=== PATIENT | male | born 1970 | race Caucasian/White ===

== ENCOUNTER 2023-10-28 19:31 | Emergency (ER) | payer OTHER, SELFPAY ==
[2023-10-28 19:35] VITALS: BP 152/80; BMI 32.1
--- NOTE | 2023-10-28 20:13 | ED.GENMED ---
History of Present Illness
General
Chief Complaint: Headache
Source: patient
Exam Limitations: none
Time Seen by Provider: 10/28/23 19:50
Travel History
Have you had any contact with someone who has COVID-19?: No
Do you have any symptoms of coronavirus? Fever > 100 degrees, chills, cough, shortness of breath, sore throat, loss of taste or smell, muscle aches, or headache?: No
History of Present Illness
History of Present Illness:
This is a 53 year old male that comes in with c/o left sided headache. States that he has a history of anxiety but is not on any medication for this. States that he has never damage in the left neck area and he has this chronic pain in the upper
back that he has had worked up. States that this causes him to have trouble breathing. States that the last couple of days his right shoulder has been hurting and his arm was twitching. Sates that he also has a headache on the left side with this
tingling that is not going away Sates that he tried Aspirin and Ibuprofen. Denies any fever, chills, chest pain, abd pain, nausea, vomiting, diarrhea, dizziness, urinary burning.
Past History
Past History
ED Past Medical History: HTN, Hypercholesterolemia and NIDDM
ED Past Surgical History: Orthopedic (Left arm repair) and Other (Left ear surgery, )
Social History
Tobacco: Former smoker
Alcohol: Occasional
Drug: Other (Former marijuana smoker)
Personal: Single
Living: alone
Family History
Family History: CAD
Review of Systems
Review of Systems
All Other Systems: ROS reviewed and negative except as documented in HPI and ROS
Constitutional: Reports no symptoms; Denies fever or chills
EENT: Reports no symptoms
Respiratory: Reports trouble breathing; Denies cough
Cardiac: Reports no symptoms; Denies chest pain
ABD/GI: Reports no symptoms; Denies abdominal pain, nausea, vomiting or diarrhea
: Reports no symptoms; Denies dysuria, frequency or urgency
Musculoskeletal: Reports other (Right arm twitching)
Skin: Reports no symptoms
Neurological: Reports headache; Denies dizzy
Psychiatric: Reports no symptoms
Phy Exam
General Physical Exam
General Presentation: well appearing and no apparent distress
General age: appears stated age
General Skin: warm and dry
General Habitus: normal
General Hydration: appears well hydrated
ENT Exam
ENT Exam: TM's normal, pharynx normal and neck supple
Eye Exam
Eye Exam: EOMI
Cardiovascular Exam
Cardiovascular Exam: regular rate/rhythm, no edema, no murmur and normal peripheral pulses
Pulmonary Exam
Pulmonary Exam: lungs clear, no respiratory distress, no rales, chest non tender, no crackles, no rhonchi, no wheezing and no cough
Gastrointestinal Exam
Gastrointestinal Exam: normal bowel sounds, non tender, soft, no organomegaly, no pulsatile mass and non distended
Musculoskeletal Exam
Musculoskeletal Exam: full ROM, no edema and other (NO twitching noted of the right arm)
Skin Exam
Skin Exam: normal color, warm/dry, no rash and no petechia
Psychiatric Exam
Psychiatric Exam: normal mood/affect
Course
Orders/Labs/Results
Orders:
Orders
10/28/23 20:11
CT Head W/o Iv Contrast Urgent
Comment:
Reason For Exam: Left sided headache pain
0.9% Sodium Chloride 1000 ml [Nss] 1,000 ml IV BOLUS
Acetaminophen [Tylenol] 1,000 mg PO NOW STA
Dexamethasone Sod Phosphate [Decadron] 10 mg IV NOW STA
Ketorolac [Toradol] 30 mg IV NOW STA
10/28/23 20:26
Complete Blood Count/With Diff Urgent
Comprehensive Metabolic Panel Urgent
Abnormal Lab Results
10/28/23
20:26
MPV 10.8 H fL
(7.4-10.4)
BUN 22 H mg/dl
(9-20)
Glucose 133 H mg/dl
(70-99)
10/28/23 20:26
10/28/23 20:26
Slight Dehydration. Glucose nonfasting.
Vital Signs
Initial and Last Documented VS:
Initial Vital Signs
Temp Pulse Resp BP Pulse Ox
98.5 F 71 16 152/80 98
10/28/23 19:35 10/28/23 19:35 10/28/23 19:35 10/28/23 19:35 10/28/23 19:35
Last Documented Vital Signs
Temp Pulse Resp BP Pulse Ox
98.2 F 59 20 152/84 96
10/28/23 21:32 10/28/23 21:32 10/28/23 21:32 10/28/23 21:32 10/28/23 21:32
MDM/Problems Addressed
Differential Diagnosis Includes:
Pinched nerve, Anxiety
MDM/Problems Addressed:
This is a 53 year old male that comes in with c/o some right shoulder pain and twitching in the right upper arm. States that he felt it was not going away. States that he does have a history of Nerve damage which causes him to have this upper back
discomfort. States that he also has left sided headache.
Will get CT head, Labs and medicate for headache pain and IV fluids
Back into see patient. Patient states that he is feeling better. Explained that his CT of the head is normal and his blood work shows very slight Dehydration. Encouraged patient to use Tylenol and Ibuprofen for his headache pain. Explained to
patient that there has not been any arm twitching noted here and he says that is stopped. Patient states that he will follow up with the family doctor for his anxiety. Patient to return with any concerns.
Chronic conditions affecting care: Psychiatric illness and Other (History of Nerve damage in the neck)
Acute Exacerbation and/or Progression of Chronic Illness: Other (Nerve damage in the neck)
*Radiology
Radiology exam reviewed: radiology read reviewed (CT head- No acute intracranial abnormality)
*Pulse Oximetry
Patient hypoxic: no
*EKG
Interpreted by ED Provider?: NA
Rate: EKG- N/A
*Towboat Engineer Interpretation
Rate: Towboat Engineer- N/A
*Critical Care Note
Total Time (30-74mins, 75-104mins- exclusive of procedures): Not Applicable
ED Attending Note
-
Portions of this chart may have been created with voice recognition software.� Occasional wrong word or��sound alike� substitutions may have occurred due to the inherent limitations of voice recognition software.
Discharge Plan
Departure
Patient Disposition: Home (Routine Discharge)
Date of Disposition: 10/28/23
Time of Disposition: 22:28
Patient with high blood pressure during this ER visit?: Yes
Condition: Good
Covid-19: Not Applicable
Discharge Problem:
Headache
Instructions: Headache, Adult (DC), BLOOD PRESSURE
Prescriptions:
No Action
losartan 50 MG tablet
50 mg PO DAILY
aspirin 81 MG tablet,delayed release (DR/EC)
81 mg PO DAILY
Atorvastatin
1 tab PO DAILY
acetaminophen [Tylenol Extra Strength] 500 MG tablet
1,000 mg PO Q6HPRN PRN (Reason: back pain)
albuterol sulfate 18 GM HFA aerosol inhaler
18 gm IH Q4HPRN PRN (Reason: SOB)
metformin 500 MG tablet extended release 24 hr
500 mg PO DAILY
dulaglutide [Trulicity] 1.5 MG/0.5 ML pen injector
1.5 mg SQ .ON FRIDAYS
cyclobenzaprine 10 MG tablet
10 mg PO TIDPRN PRN (Reason: pain, spasm) Qty: 13 0RF
prednisone 10 MG tablet
10 mg PO .TAPER Qty: 30 0RF
Rx Instructions:
Take 40mg daily x3days, 30mg daily x3days,
20mg daily x3days, 10mg daily x3days.
amoxicillin-pot clavulanate [Augmentin] 500-125 mg tablet
1 tab PO Q8H 7 Days Qty: 21 0RF
oxycodone-acetaminophen [Percocet] 5-325 mg tablet
1 tab PO Q6H PRN (Reason: pain) Qty: 4 0RF
prednisone 20 mg tablet
40 mg PO DAILY 5 Days Qty: 10 0RF
Referrals:
Joey Hannah MD [Family Provider] - Call in 1-3 days for appt
Activity Restrictions/Additional Instructions:
As discussed, your blood work shows very slight Dehydration. Please increase your water intake to 8-8oz glasses daily. Your CT of the head is normal. You may use Tylenol 1000mg every 6 hours for pain and IBuprofen 600mg every 6 hours with food for
headache pain. Follow up with the family doctor for recheck. IF YOU HAVE ANY OTHER CONCENS PLEASE RETURN TO THE EMERGENCY ROOM
Interventions
Interventions:
*Risk Screen - Suicide Last Done: 10/28/23 19:35
*General Assessment Last Done: 10/28/23 20:13
*Neglect/Abuse Screening Last Done: 10/28/23 19:35
ED- Fall Risk Assessment Last Done: 10/28/23 20:13
*ED COVID-19 Vaccine History Last Done: 10/28/23 19:35
ED- Neurological Assessment Last Done: 10/28/23 20:13
[2023-10-28] MEDS: NSS 1000 IV (20:26)
[2023-10-28 20:30] LABS: % Basophils 0.7 % (0-2); % Eosinophils 3.3 % (0-6); % Immature Granulocytes 0.3 % (0-0.5); % Lymphocytes 21.4 % (20.5-51.1); % Monocytes 7.4 % (1.7-9.3); % Neutrophils 66.9 % (42.2-75.2); Absolute Basophils 0.1 10^3/uL (0-0.2); Absolute Eosinophils 0.2 10^3/uL (0-0.7); Absolute Lymphocytes 1.5 10^3/uL (1.2-3.4); Absolute Monocytes 0.5 10^3/uL (0.1-0.6); Absolute Neutrophils 4.8 10^3/uL (1.4-6.5); Hematocrit 42.3 % (39.0-52.0); Mean Corp Hgb Conc. 35.5 g/dL (33.0-37.0); Mean Corpuscular Hgb 30.4 pg (27.0-31.0); Mean Corpuscular Volume 85.8 fL (80.0-94.0); Mean Platelet Volume 10.8 fL (7.4-10.4); Nucleated Red Blood Cells % 0 % (-); Platelet Count 206 10^3/uL (130-400); Red Blood Cell Count 4.93 10^6/uL (4.70-6.10); Red Cell Dist. Width 13.8 % (11.5-14.5); White Blood Cell Count 7.2 10^3/uL (4.8-10.8)
[2023-10-28] MEDS: TYLENOL 1000 MG PO (20:30)
[2023-10-28] MEDS: DECADRON 10 MG IV (20:31)
[2023-10-28] MEDS: TORADOL 30 MG IV (20:32)
[2023-10-28 20:47] LABS: ALT (SGPT) 27 U/L (0-50); AST (SGOT) 24 U/L (17-59); Albumin 4.2 g/dl (3.5-5.0); Alkaline Phosphatase 79 U/L (38-126); Blood Urea Nitrogen 22 mg/dl (9-20); Calcium 9.8 mg/dl (8.4-10.2); Carbon Dioxide 24 mmol/L (22-30); Chloride 103 mmol/L (98-107); Estimated Creatinine Clearance > 125 ml/min; Glucose 133 mg/dl (70-99); Potassium 3.9 mmol/L (3.5-5.1); Sodium 139 mmol/L (135-145); Total Bilirubin 0.6 mg/dl (0.2-1.3); Total Protein 6.8 g/dl (6.3-8.2); eGFR > 60.00
[2023-10-28 21:32] VITALS: BP 152/84
== END 2023-10-28 23:27 | disposition home or self-care (01) ==
LOC: EMR 19:31
PROVIDERS: Clinical Nurse Specialist Family Health; EMERGENCY PHYSICIAN Emergency Medicine; FAMILY PHYSICIAN Family Medicine
DX: R51.9 Headache, unspecified (principal); M25.511 Pain in right shoulder; R25.3 Fasciculation; R20.2 Paresthesia of skin; M54.6 Pain in thoracic spine; E86.0 Dehydration; F41.9 Anxiety disorder, unspecified; G89.29 Other chronic pain; I10 Essential (primary) hypertension; E78.00 Pure hypercholesterolemia, unspecified; E11.9 Type 2 diabetes mellitus without complications; Z87.891 Personal history of nicotine dependence; Z79.82 Long term (current) use of aspirin; Z79.84 Long term (current) use of oral hypoglycemic drugs
CPT/HCPCS: 99284; 96374; 96375; 96361; 70450; 80053; 85025

== ENCOUNTER 2024-10-18 07:34 | Emergency (ER) | payer OTHER, SELFPAY ==
[2024-10-18 07:36] VITALS: BP 137/89
--- NOTE | 2024-10-18 07:54 | ED.GENMED ---
History of Present Illness
General
Chief Complaint: Back Pain
Source: patient
Exam Limitations: none
Time Seen by Provider: 10/18/24 07:42
Nursing documentation reviewed up to this point in time: agreed with
History of Present Illness
History of Present Illness:
54-year-old male history of insulin-dependent diabetes hypertension former smoker presents for upper back pain has been getting worse over the last month. Patient said he has had it for about 2 years and it is in the area of like T4 region of his
back. It is nonradiating and worse if he leans on it. Previously several years ago he says he had an MRI and he believes he was told there was some spinal stenosis but is not really sure. He has not seen his family doctor for this. He does not
like taking medications. He did use to use street drugs including cocaine but never any IV drugs. 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 He feels like the pain takes his breath away especially if he is laying back. It is worse at
night because he cannot get comfortable. He has tried Tylenol or Advil with minimal relief. He has no exertional component to his symptoms. Over the last several weeks he has also noticed some right upper arm pain. It does not feel like a
burning, numbness, weakness, tingling but it feels like a pain into his right upper arm. That is also not exertional. He has a minimal pleuritic component to the symptoms. No hemoptysis, fever, chills, weight loss, history of [place]. Patient was
seen here several years ago for the same sounding back pain. Patient says that he thinks he needs some advanced imaging
Past History
Past History
ED Past Medical History: HTN, Hypercholesterolemia and NIDDM
ED Past Surgical History: Orthopedic (Left arm repair) and Other (Left ear surgery, )
Social History
Tobacco: Former smoker
Alcohol: Occasional
Drug: Other (Former marijuana smoker)
Personal: Single
Living: alone
Family History
Family History: CAD
Review of Systems
Review of Systems
Allergies reviewed?: Yes
All Other Systems: Not applicable
Phy Exam
Physical Exam
Physical Exam:
GENERAL: Alert , in no apparent distress, comfortable at rest
HEAD: NCAT
NECK: no midline tenderness, active ROM intact, no paraspinal muscle tenderness;
CARDIAC: Regular rate and rhythm, no edema
LUNGS: Clear breath sounds bilaterally, no acute respiratory distress, no wheezes/rales/rhonchi
ABDOMEN: Soft, without focal tenderness, no r/g, no cvat, normal bowel sounds, nondistended
NEUROLOGICAL: Alert and oriented, no focal neuro deficits, CN intact, 5/5 strength, sensation intact,
SKIN: Warm and dry,
MUSCULOSKELETAL: No edema, well perfused.
no arm swelling or tenderness
Back: Midline back tenderness upper thoracic region, no palpable masses, some kyphosis of his spine,
PSYCH: Normal and appropriate interaction.
Course
Orders/Labs/Results
Orders:
Orders
10/18/24 07:54
Electrocardiogram (*1) Urgent
Reason for Study: Shortness of Breath
EKG- Treatment ONCE
Ketorolac [Toradol] 30 mg IV NOW STA
10/18/24 08:07
Complete Blood Count/With Diff Urgent
Comprehensive Metabolic Panel Urgent
D-Dimer Urgent
Troponin I Urgent
10/18/24 08:17
Acetaminophen [Tylenol] 500 mg PO NOW STA
10/18/24 08:46
CT Thoracic Spine W/o Iv Contr Urgent
Comment:
Reason For Exam: worsening mid upper back pain
10/18/24 08:47
CR Chest - 2 Views Urgent
Comment:
Reason For Exam: back pain, sob
10/18/24 09:36
Dexamethasone Sod Phosphate [Decadron] 10 mg IV NOW STA
Abnormal Lab Results
10/18/24
08:07
MPV 11.3 H fL
(7.4-10.4)
Glucose 154 H mg/dl
(70-99)
10/18/24 08:07
10/18/24 08:07
Vital Signs
Initial and Last Documented VS:
Initial Vital Signs
Temp Pulse Resp BP Pulse Ox
36.2 C 65 18 137/89 99
10/18/24 07:36 10/18/24 07:36 10/18/24 07:36 10/18/24 07:36 10/18/24 07:36
Last Documented Vital Signs
Temp Pulse Resp BP Pulse Ox
36.4 C 61 16 137/81 98
10/18/24 08:17 10/18/24 10:42 10/18/24 08:17 10/18/24 10:42 10/18/24 10:42
MDM/Problems Addressed
Differential Diagnosis Includes:
compression fracture, DJD spine, tumor, less likely aortic dissection/aneurysm, cad, pe
MDM/Problems Addressed:
54 y/o M
2 years of upper back pain same location
no trauma
says over the past month he thinks the pain is worse
he is having trouble laying on his back, so sleeping is difficult
he also feels some pain in hi R upper arm
this pain is not exertional but it does take his breath away, he says he feels sob with trying to lie down but not with exertion
no arm or leg swelling, h/o recent travel
he is well appearing
pain is worse with movement and reproduced on exam, midline, no masses, no skin changes
lungs clear
no murmur
bp stable
no tachycardica
good candidate for D dimer which was neg
trop also neg, no ekg changes
so proceeded with back imaging, has had t spine xrays previously so opted for ct scan
cxr no cardiomegaly or mediastinum widening
givne the chronicity o fthis pain, this is very unlikely aortic syndrome
will recommend steorids, 1 dose here, 1 dose orderef ro 48 hours
f/u wtih pcp
return precauitons
d/w dr. marie who agreed
*Critical Care Note
Total Time (30-74mins, 75-104mins- exclusive of procedures): Not Applicable
ED Attending Note
-
Portions of this chart may have been created with voice recognition software.� Occasional wrong word or��sound alike� substitutions may have occurred due to the inherent limitations of voice recognition software.
Discharge Plan
Departure
Patient Disposition: Home (Routine Discharge)
Date of Disposition: 10/18/24
Time of Disposition: 10:09
Patient with high blood pressure during this ER visit?: No
Condition: Fair
Covid-19: Not Applicable
Discharge Problem:
Back pain, thoracic
Instructions: Upper Back Pain (DC)
Prescriptions:
New
dexamethasone 2 mg tablet
8 mg PO ONCE Qty: 4 0RF
Rx Instructions:
8 mg po on 10/20
No Action
losartan 50 MG tablet
50 mg PO DAILY
aspirin 81 MG tablet,delayed release (DR/EC)
81 mg PO DAILY
Atorvastatin
1 tab PO DAILY
acetaminophen [Tylenol Extra Strength] 500 MG tablet
1,000 mg PO Q6HPRN PRN (Reason: back pain)
albuterol sulfate 18 GM HFA aerosol inhaler
18 gm IH Q4HPRN PRN (Reason: SOB)
metformin 500 MG tablet extended release 24 hr
500 mg PO DAILY
dulaglutide [Trulicity] 1.5 MG/0.5 ML pen injector
1.5 mg SQ .ON FRIDAYS
cyclobenzaprine 10 MG tablet
10 mg PO TIDPRN PRN (Reason: pain, spasm) Qty: 13 0RF
prednisone 10 MG tablet
10 mg PO .TAPER Qty: 30 0RF
Rx Instructions:
Take 40mg daily x3days, 30mg daily x3days,
20mg daily x3days, 10mg daily x3days.
amoxicillin-pot clavulanate [Augmentin] 500-125 mg tablet
1 tab PO Q8H 7 Days Qty: 21 0RF
oxycodone-acetaminophen [Percocet] 5-325 mg tablet
1 tab PO Q6H PRN (Reason: pain) Qty: 4 0RF
prednisone 20 mg tablet
40 mg PO DAILY 5 Days Qty: 10 0RF
Referrals:
Kan Sanchez MD [Active] - Follow up in 1 week (ORTHO SPINE)
Joey Hannah MD [Family Provider] - Follow up in 2-3 days
Activity Restrictions/Additional Instructions:
YOUR LABS, EKG, CHEST XRAY AND CAT SCAN DO NOT SHOW ANY SIGNS OF SERIOUS EMERGENCY TODAY CAUSING YOUR UPPER BACK PAIN
YOU MAY NEED ANOTHER MRI.
WATCH YOUR SYPMTOMS CLOSELY
RETURN FOR: ARM WEAKNESS, ARM NUMBNESS, (OR LEG WEAK/NUMB), WORSE TROUBLE BREATHING, FEVER, SEVERE PAIN, OR ANY CONCERNS
OTHERWISE PLEASE SEE YOUR FAMILY DOCTOR FOR MORE O F AWORK UP AN DPERHAPS ORTHOPEDIC SPINE
TAKE DECADRON ON 10/20 (WEDNESDAY) 8 MG
Interventions
Interventions:
*Risk Screen - Suicide Last Done: 10/18/24 07:36
*General Assessment Last Done: 10/18/24 08:04
*Neglect/Abuse Screening Last Done: 10/18/24 08:06
*ED COVID-19 Vaccine History Last Done: 10/18/24 08:04
*Nursing Disposition Last Done: 10/18/24 10:42
ED-Musculoskeletal Assessment Last Done: 10/18/24 10:00
Discharge Date and Time
Discharge Date/Time: 10/18/24 10:44
Print Language: [place]
[2024-10-18 08:02] VITALS: BMI 32.0
[2024-10-18 08:06] VITALS: BP 128/78
[2024-10-18 08:17] VITALS: BP 128/78
[2024-10-18] MEDS: TYLENOL 500 MG PO (08:20)
[2024-10-18 08:21] LABS: % Basophils 0.6 % (0-2); % Eosinophils 2.4 % (0-6); % Immature Granulocytes 0.3 % (0-0.5); % Lymphocytes 23.8 % (20.5-51.1); % Monocytes 7.9 % (1.7-9.3); Absolute Basophils 0.1 10^3/uL (0-0.2); Absolute Eosinophils 0.2 10^3/uL (0-0.7); Absolute Lymphocytes 1.9 10^3/uL (1.2-3.4); Absolute Monocytes 0.6 10^3/uL (0.1-0.6); Absolute Neutrophils 5.2 10^3/uL (1.4-6.5); Hematocrit 46.1 % (39.0-52.0); Hemoglobin 16.2 g/dL (13.0-18.0); Mean Corp Hgb Conc. 35.1 g/dL (33.0-37.0); Mean Corpuscular Hgb 30.2 pg (27.0-31.0); Mean Platelet Volume 11.3 fL (7.4-10.4); Nucleated Red Blood Cells % 0 % (-); Platelet Count 236 10^3/uL (130-400); Red Blood Cell Count 5.36 10^6/uL (4.70-6.10); Red Cell Dist. Width 12.6 % (11.5-14.5)
[2024-10-18 08:37] LABS: ALT (SGPT) 23 U/L (0-50); AST (SGOT) 25 U/L (17-59); Albumin 4.7 g/dl (3.5-5.0); Alkaline Phosphatase 75 U/L (38-126); Blood Urea Nitrogen 17 mg/dl (9-20); Calcium 9.7 mg/dl (8.4-10.2); Carbon Dioxide 22 mmol/L (22-30); Chloride 102 mmol/L (98-107); Estimated Creatinine Clearance 123 ml/min; Glucose 154 mg/dl (70-99); Potassium 4.5 mmol/L (3.5-5.1); Sodium 136 mmol/L (135-145); Total Bilirubin 0.7 mg/dl (0.2-1.3); Total Protein 7.4 g/dl (6.3-8.2); eGFR > 60.00
[2024-10-18 08:43] LABS: D-Dimer < 0.27 ug/mlFEU (0.00-0.50)
[2024-10-18 08:48] LABS: Troponin I < 0.012 ng/ml
[2024-10-18] MEDS: DECADRON 10 MG IV (09:46)
[2024-10-18 10:42] VITALS: BP 137/81
== END 2024-10-18 10:44 | disposition home or self-care (01) ==
LOC: EMR 07:34
PROVIDERS: Physician Assistant; EMERGENCY PHYSICIAN Emergency Medicine; FAMILY PHYSICIAN Family Medicine
DX: M54.6 Pain in thoracic spine (principal); I10 Essential (primary) hypertension; E78.00 Pure hypercholesterolemia, unspecified; E11.9 Type 2 diabetes mellitus without complications; Z87.891 Personal history of nicotine dependence; Z79.4 Long term (current) use of insulin
CPT/HCPCS: 99285; 96374; 71046; 72128; 80053; 84484; 85025; 85379; 93005

== ENCOUNTER 2024-12-24 04:12 | Emergency (ER) | payer OTHER, SELFPAY ==
[2024-12-24 04:15] VITALS: BP 144/86
[2024-12-24 05:28] VITALS: BP 111/77
[2024-12-24 05:57] VITALS: BMI 32.3
[2024-12-24 06:00] VITALS: BP 134/89
--- NOTE | 2024-12-24 06:15 | ED.GENMED ---
History of Present Illness
General
Chief Complaint: Blood Pressure Problem
Source: patient
Exam Limitations: none
Time Seen by Provider: 12/24/24 06:13
Nursing documentation reviewed up to this point in time: agreed with
History of Present Illness
History of Present Illness:
54-year-old male presents emergency room complaining of back pain and shortness of breath for a long time, he is worried he is getting worse. He has been seen in the past for it and had x-ray showing degenerative changes.
Past History
Past History
ED Past Medical History: HTN, Hypercholesterolemia and NIDDM
ED Past Surgical History: Orthopedic (Left arm repair) and Other (Left ear surgery, )
Social History
Tobacco: Former smoker
Alcohol: Occasional
Drug: Other (Former marijuana smoker)
Personal: Single
Living: alone
Family History
Family History: CAD
Review of Systems
Review of Systems
Allergies reviewed?: Yes
All Other Systems: Not applicable
Constitutional: Reports no symptoms
EENT: Reports no symptoms
Respiratory: Reports no symptoms
Cardiac: Reports chest pain
ABD/GI: Reports no symptoms
: Reports no symptoms
Musculoskeletal: Reports back pain
Skin: Reports no symptoms
Neurological: Reports no symptoms
Endocrine: Reports no symptoms
Hematologic/Lymphatic: Reports no symptoms
Psychiatric: Reports no symptoms
Phy Exam
Physical Exam
Physical Exam:
Physical Exam
General: no apparent distress, not acutely ill
Neck: supple. no meningeal signs. normal posterior pharynx
Heart: s1/s2 regular rate and rhythm, no murmur. equal radial
pulses.
HEENT: Pupils equal round reactive to light, EOMI
Lungs: no acute respiratory distress. clear bilaterally
Abdomen: normal bowel sounds. not tender. no CVAT
Neuro: alert and oriented. no focal neurological deficits cranial nerves II through XII intact
Skin: no rash
Psychiatric: well kept. interactive and cooperative
Extremities: no edema. no calf tenderness. negative homans. good distal pulses
Course
Orders/Labs/Results
Orders:
Orders
12/24/24 04:20
ECG [Electrocardiogram (*1)] Urgent
Reason for Study: Hypertension, Benign
EKG- Treatment ONCE
12/24/24 06:23
CT Chest/abd/pelvis Angio W/wo Urgent
Comment:
Reason For Exam: back and chest pain shortness of breath
Pulse Ox/cont/shift [RESP] Stat
Quantity: 1
12/24/24 06:24
Cardiac Monitoring- Treatment ONCE
12/24/24 06:28
Complete Blood Count/With Diff Urgent
Comprehensive Metabolic Panel Urgent
NT-proBNP Urgent
Comment: ADD ON
Troponin I Urgent
12/24/24 07:48
Add On- LAB Urgent
Tests Added?: pro-bnp
Abnormal Lab Results
12/24/24
06:28
MPV 11.5 H fL
(7.4-10.4)
Absolute Monos (auto) 0.7 H 10^3/uL
(0.1-0.6)
BUN 22 H mg/dl
(9-20)
Glucose 137 H mg/dl
(70-99)
Calcium 10.3 H mg/dl
(8.4-10.2)
12/24/24 06:28
12/24/24 06:28
Vital Signs
Initial and Last Documented VS:
Initial Vital Signs
Temp Pulse Resp BP Pulse Ox
97.4 F 70 20 144/86 96
12/24/24 04:15 12/24/24 04:15 12/24/24 04:15 12/24/24 04:15 12/24/24 04:15
Last Documented Vital Signs
Temp Pulse Resp BP Pulse Ox
97.4 F 53 20 118/55 99
12/24/24 04:15 12/24/24 09:30 12/24/24 04:15 12/24/24 09:00 12/24/24 09:30
MDM/Problems Addressed
Differential Diagnosis Includes:
Pneumonia, CHF, PE, aortic dissection
MDM/Problems Addressed:
54-year-old male with back pain, possible pneumonia versus chronic lung scarring. Will treat with short burst of antibiotics and follow-up primary care.
Chronic conditions affecting care: HTN
*Radiology
Radiology exam reviewed: radiology read reviewed (CT angiography shows patchy infiltrates, no PE or aortic dissection)
*Pulse Oximetry
Patient hypoxic: no
*EKG
Interpreted by ED Provider?: Yes
EKG Intrepretation Date: 12/24/24
EKG Intrepretation Time: 04:24
Interpretation: abnormal
Comparison EKG: no changes
Heart Rate: 59
Rate: bradycardiac
Rhythm: sinus
[place]: normal axis
Interval: normal interval
QRS Pattern: normal QRS
Ischemia: no ischemia
*Tableau Report Developer Interpretation
Rate: normal
Interpretation: normal
Heart Rate: 75
Rhythm: sinus
*Critical Care Note
Total Time (30-74mins, 75-104mins- exclusive of procedures): Not Applicable
Patient Management
Social determinants of health affecting care: Living situation and Strong social support
Escalation/DeEscalation of care consider admission/obs:
admit not indicated
ED Attending Note
-
Portions of this chart may have been created with voice recognition software.� Occasional wrong word or��sound alike� substitutions may have occurred due to the inherent limitations of voice recognition software.
Discharge Plan
Departure
Patient Disposition: Home (Routine Discharge)
Date of Disposition: 12/24/24
Time of Disposition: 09:42
Patient with high blood pressure during this ER visit?: Yes
Condition: Good
Discharge Problem:
Pneumonia
Instructions: Pneumonia in adults, BLOOD PRESSURE
Prescriptions:
New
amoxicillin 500 mg capsule
1,000 mg PO TID Qty: 15 0RF
azithromycin [Zithromax Z-Kaiden] 250 mg tablet
250 mg PO DAILY 6 Days Qty: 6 0RF
No Action
losartan 50 MG tablet
50 mg PO DAILY
aspirin 81 MG tablet,delayed release (DR/EC)
81 mg PO DAILY
Atorvastatin
1 tab PO DAILY
acetaminophen [Tylenol Extra Strength] 500 MG tablet
1,000 mg PO Q6HPRN PRN (Reason: back pain)
albuterol sulfate 18 GM HFA aerosol inhaler
18 gm IH Q4HPRN PRN (Reason: SOB)
metformin 500 MG tablet extended release 24 hr
500 mg PO DAILY
dulaglutide [Trulicity] 1.5 MG/0.5 ML pen injector
1.5 mg SQ .ON FRIDAYS
cyclobenzaprine 10 MG tablet
10 mg PO TIDPRN PRN (Reason: pain, spasm) Qty: 13 0RF
prednisone 10 MG tablet
10 mg PO .TAPER Qty: 30 0RF
Rx Instructions:
Take 40mg daily x3days, 30mg daily x3days,
20mg daily x3days, 10mg daily x3days.
amoxicillin-pot clavulanate [Augmentin] 500-125 mg tablet
1 tab PO Q8H 7 Days Qty: 21 0RF
oxycodone-acetaminophen [Percocet] 5-325 mg tablet
1 tab PO Q6H PRN (Reason: pain) Qty: 4 0RF
prednisone 20 mg tablet
40 mg PO DAILY 5 Days Qty: 10 0RF
dexamethasone 2 mg tablet
8 mg PO ONCE Qty: 4 0RF
Rx Instructions:
8 mg po on 10/20
Referrals:
Joey Hannah MD [Family Provider] - Call in 1-3 days for appt
Interventions
Interventions:
*Risk Screen - Suicide Last Done: 12/24/24 05:57
*General Assessment Last Done: 12/24/24 05:57
*Neglect/Abuse Screening Last Done: 12/24/24 05:57
*ED- Fall Risk Assessment Last Done: 12/24/24 05:57
*ED COVID-19 Vaccine History Last Done: 12/24/24 05:57
ED- Cardiac Assessment Last Done: 12/24/24 05:57
ED- Neurological Assessment Last Done: 12/24/24 05:57
ED- Pulmonary Assessment Last Done: 12/24/24 05:57
Discharge Date and Time
Print Language: EGYPTIAN
[2024-12-24 06:40] LABS: % Basophils 1.1 % (0-2); % Eosinophils 2.9 % (0-6); % Immature Granulocytes 0.4 % (0-0.5); % Lymphocytes 27.6 % (20.5-51.1); % Monocytes 8.1 % (1.7-9.3); % Neutrophils 59.9 % (42.2-75.2); Absolute Basophils 0.1 10^3/uL (0-0.2); Absolute Eosinophils 0.2 10^3/uL (0-0.7); Absolute Lymphocytes 2.3 10^3/uL (1.2-3.4); Absolute Monocytes 0.7 10^3/uL (0.1-0.6); Hematocrit 46.1 % (39.0-52.0); Hemoglobin 16.2 g/dL (13.0-18.0); Mean Corp Hgb Conc. 35.1 g/dL (33.0-37.0); Mean Corpuscular Hgb 30.3 pg (27.0-31.0); Mean Corpuscular Volume 86.3 fL (80.0-94.0); Mean Platelet Volume 11.5 fL (7.4-10.4); Nucleated Red Blood Cells % 0 % (-); Platelet Count 232 10^3/uL (130-400); Red Blood Cell Count 5.34 10^6/uL (4.70-6.10); Red Cell Dist. Width 13.2 % (11.5-14.5); White Blood Cell Count 8.4 10^3/uL (4.8-10.8)
[2024-12-24 06:57] LABS: ALT (SGPT) 30 U/L (0-50); AST (SGOT) 28 U/L (17-59); Alkaline Phosphatase 91 U/L (38-126); Blood Urea Nitrogen 22 mg/dl (9-20); Calcium 10.3 mg/dl (8.4-10.2); Carbon Dioxide 25 mmol/L (22-30); Chloride 103 mmol/L (98-107); Estimated Creatinine Clearance 121 ml/min; Glucose 137 mg/dl (70-99); Potassium 4.4 mmol/L (3.5-5.1); Sodium 139 mmol/L (135-145); Total Bilirubin 0.7 mg/dl (0.2-1.3); Total Protein 7.5 g/dl (6.3-8.2); eGFR > 60.00
[2024-12-24 07:00] VITALS: BP 104/54
[2024-12-24 07:12] LABS: Troponin I < 0.012 ng/ml
[2024-12-24 08:38] VITALS: BP 123/70
[2024-12-24 08:39] LABS: NT-proBNP < 20.0 pg/ml
[2024-12-24 09:00] VITALS: BP 118/55
== END 2024-12-24 10:10 | disposition home or self-care (01) ==
LOC: EMR 04:12
PROVIDERS: EMERGENCY PHYSICIAN Emergency Medicine; FAMILY PHYSICIAN Family Medicine
DX: J18.9 Pneumonia, unspecified organism (principal); E11.9 Type 2 diabetes mellitus without complications; E78.00 Pure hypercholesterolemia, unspecified; I10 Essential (primary) hypertension; Z87.891 Personal history of nicotine dependence
CPT/HCPCS: 99284; 71275; 74174; 80053; 83880; 84484; 85025; 93005; Q9967